=== PATIENT | female | born 1975 | race Caucasian/White ===

== ENCOUNTER 2016-11-22 15:38 | Emergency (ER) | payer MEDICAID ==
--- NOTE | 2016-11-22 15:37 | EDPHY ---
H & P Time Seen by Provider: 11/22/16 15:39 Constitutional: Initial Vital Signs Heart Rate 54 L 11/22/16 15:38 Respiratory Rate 18 11/22/16 15:38 Blood Pressure 112/82 H 11/22/16 15:38 O2 Sat (%) 96 11/22/16 15:38 O2 Delivery Mode Room Air Allergies/Adverse Reactions: No Known Allergies Allergy (Unverified 09/28/13 19:48) Medical Decision Making ED Course/Re-evaluation: CHIEF COMPLAINT: Syncope HISTORY OF PRESENT ILLNESS: This patient is a 41 year old female who presents to the Emergency Department [facility] following an episode of witnessed syncope while awaiting her appointment for a non-surgical . EMS tells me that she was given initial medications when she began to feel nauseated and collapsed. When they arrived, she was awake but disoriented. Her initial vitals in transport were within normal ranges. Upon arrival to the ED, she is alert but mildly disoriented. She denies headache or trauma, heart palpitations, chest pain, or any additional complaints. Her physician with the [facility] reports a history of prolonged vagal reactions. REVIEW OF SYSTEMS: A 10 point review of systems was performed and is negative with the exception of the elements mentioned in the history of present illness. PHYSICAL EXAM: HR 54, BP 112/82, O2 Sat 96%, RR 18. Temp noted General Appearance: Alert, well hydrated, appropriate, and non-toxic appearing. Head: Atraumatic without scalp tenderness or obvious injury Eyes: Pupils equal, round, reactive to light and accommodation, EOMI, no trauma , no injection. Ears: Clear bilaterally, no perforation, normal landmarks Nose: Atraumatic, no rhinorrhea, clear. Throat: There is no erythema or exudates, no lesions, normal tonsils, mucus membranes moist. Neck: Supple, 2+ carotid upstroke, nontender, no lymphadenopathy. Respiratory: No retractions, no distress, no wheezes, and no accessory muscle use. Lungs are clear to auscultation bilaterally. Cardiovascular: Regular rate and rhythm, no murmurs, rubs, or gallops. Bilateral carotid, radial, dorsalis pedis, and posterior tibial pulses intact. Good capillary refill all extremities. Gastrointestinal: Abdomen is soft, nontender, non-distended, no masses, no rebound, no guarding, no peritoneal signs. Musculoskeletal: Normal active ROM of all extremities, atraumatic. Neurological: Alert, responsive to questions, disoriented. The patient has normal DTRs and non-focal cranial nerves, motor, sensory, and cerebellar exam. Skin: No rashes, good turgor, no nodules on palpation. Past medical history: Prolonged vasovagal syncope. Social history: and daughter at bedside. DIAGNOSTICS/PROCEDURES/CRITICAL CARE TIME: EKG INTERPRETATION: The 12 lead EKG was interpreted by myself: Sinus bradycardia, rate 48. See hard copy and/or "tracemaster" electronic copy for interpretation. ECHOCARDIOGRAPHY: Indication: syncope Procedure: Limited transthoracic 2D echocardiogram. A limited transthoracic echocardiogram was performed by the echocardiogram technologists and interpreted by Dr. Cain Delvalle. Conclusion: 1. Left ventricle normal in size and function 2. EF = 70% 3. Dilated inferior vena cava suggests increased right atrial pressure 4. Trace mitral valve prolapse. Mild mitral regurgitation. Mild tricuspid regurgitation. 5. Right ventricular systolic pressure is 45mmHg. DIFFERENTIAL DIAGNOSIS: The differential diagnosis for the patient's syncope included but was not limited to vasovagal syncope, arrhythmia, dehydration, cardiogenic causes, neurogenic causes, and blood loss. MEDICAL DECISION MAKING: This patient is a 41 year old female arriving via EMS following an episode of syncope just after receiving her initial medical medications at the [facility]. I discussed the case with the patient's physician who reports that the patient has a history of vagal episodes; her family confirmed this. Given this, I am suspicious that her medications instigated a prolonged vasovagal syncopal episode. 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 Will also proceed with echocardiography as family reports this is more extended than prior syncopal episodes. The [facility] Physician recommends that she complete her medication at home if she is able to be discharged in stable condition. ED COURSE: 1535: Took EMS report at bedside. 1542: Consultation with the patient's physician at the [facility]: [phone] 1629: Labs reviewed; the patient is not anemic, electrolytes are normal. Plan for consultation with cardiology. 1633: Consultation with Dr. Cain Delvalle, carbider, who will read the echocardiogram. He is suspicious of lack of sympathetic tone to explain the vagal event. He is happy to follow-up with her in the office. He also recommends that she follow-up with her PCP. 1708: On reevaluation, the patient is doing better. She has no complaints at this time. She is able to ambulate appropriately without exacerbation of symptoms. I discussed imaging and lab results with the patient who understand follow-up instructions. She will complete her medicated at home as discussed with her provider [facility]. She has instructions to follow-up with cardiology this week as well as her PCP. - Data Points Laboratory Results: Laboratory Results 11/22/16 15:47 11/22/16 15:47 11/22/16 15:47 WBC 7.53 10^3/uL (3.80-9.50) RBC 4.07 L 10^6/uL (4.18-5.33) Hgb 12.9 g/dL (12.6-16.3) Hct 36.8 L % (38.0-47.0) MCV 90.4 fL (81.5-99.8) MCH 31.7 pg (27.9-34.1) MCHC 35.1 g/dL (32.4-36.7) RDW 12.7 % (11.5-15.2) Plt Count 216 10^3/uL (150-400) MPV 8.8 fL (8.7-11.7) Neut % (Auto) 51.0 % (39.3-74.2) Lymph % (Auto) 36.4 % (15.0-45.0) [place] % (Auto) 7.0 % (4.5-13.0) Eos % (Auto) 4.6 % (0.6-7.6) Baso % (Auto) 0.7 % (0.3-1.7) Nucleat RBC Rel Count 0.0 % (0.0-0.2) Absolute Neuts (auto) 3.84 10^3/uL (1.70-6.50) Absolute Lymphs (auto) 2.74 10^3/uL (1.00-3.00) Absolute Monos (auto) 0.53 10^3/uL (0.30-0.80) Absolute Eos (auto) 0.35 10^3/uL (0.03-0.40) Absolute Basos (auto) 0.05 10^3/uL (0.02-0.10) Absolute Nucleated RBC 0.00 10^3/uL (0-0.01) Immature Gran % 0.3 % (0.0-1.1) Immature Gran # 0.02 10^3/uL (0.00-0.10) Sodium 133 L mEq/L (134-144) Potassium 4.0 mEq/L (3.5-5.2) Chloride 104 mEq/L (97-110) Carbon Dioxide 22 mEq/l (22-31) Anion Gap 7 mEq/L (8-16) BUN 14 mg/dL (7-23) Creatinine 0.6 mg/dL (0.6-1.0) Estimated GFR > 60 Glucose 95 mg/dL (70-100) Calcium 8.4 L mg/dL (8.5-10.4) Magnesium 1.8 mg/dL (1.6-2.3) Troponin I < 0.012 ng/mL (0-0.034) Medications Given: Discontinued Medications Sodium Chloride (Ns) 1,000 mls @ 0 mls/hr IV ONCE ONE PRN Reason: Wide Open Stop: 11/22/16 16:22 Last Admin: 11/22/16 16:23 Dose: 1,000 mls Departure - Departure Disposition: Home, Routine, Self-Care Clinical Impression: Bradycardia, Syncope Condition: Good Instructions: Syncope (ED), Bradycardia (ED) Additional Instructions: 1. Continue the medications for your procedure as prescribed by your physician at the [facility]. You should be able to take this at home as directed. 2. Schedule a follow-up appointment with [facility] to further investigate your bradycardia (low heart rate). 3. Schedule a follow-up appointment with your primary care provider for reevaluation next week. 4. Return to the Emergency Department for repeat episode of fainting, lightheadedness or dizziness, chest pain, or other serious concerns. Referrals: Cain Delvalle MD [Medical Doctor] - As per Instructions Report Scribed for: Mitul Buchanan Report Scribed by: Terrie Hagen Date of Report: 11/22/16 Time of Report: 15:39
--- NOTE | 2016-11-22 15:57 | CPEKG ---
Heart Rate: 48 RR Interval: 1250 P-R Interval: 204 QRSD Interval: 106 QT Interval: 440 QTC Interval: 394 P Stewart: 77 QRS Stewart: -34 T Wave Stewart: 19 EKG Severity - BORDERLINE ECG - EKG Impression: SINUS BRADYCARDIA EKG Impression: BORDERLINE IVCD WITH LAD Electronically Signed By: Mitul Buchanan 22-Nov-2016 23:03:09
[2016-11-22 15:58] LABS: % IMMATURE GRANULYOCYTES 0.3 % (0.0-1.1); ABSOLUTE IMMATURE GRANULOCYTES 0.02 10^3/uL (0.00-0.10); ADD DIFF? NO; ADD MORPH? NO; ADD SCAN? NO; ATYPICAL LYMPHOCYTE FLAG 10 (0-99); FRAGMENT RBC FLAG 0 (0-99); HEMATOCRIT 36.8 % (38.0-47.0); HEMOGLOBIN 12.9 g/dL (12.6-16.3); LEFT SHIFT FLG 0 (0-99); LIPEMIA HEMOLYSIS FLAG 90 (0-99); MEAN CELL HEMOGLOBIN 31.7 pg (27.9-34.1); MEAN CELL HEMOGLOBIN CONCENTR. 35.1 g/dL (32.4-36.7); MEAN CELL VOLUME 90.4 fL (81.5-99.8); MEAN PLATELET VOLUME 8.8 fL (8.7-11.7); PLATELET CLUMPS FLAG 20 (0-99); PLATELET COUNT 216 10^3/uL (150-400); RED BLOOD CELL COUNT 4.07 10^6/uL (4.18-5.33); RED CELL DISTRIBUTION WIDTH 12.7 % (11.5-15.2)
[2016-11-22 16:05] VITALS: O2SAT 96
[2016-11-22 16:13] LABS: ANION GAP 7 mEq/L (8-16); CALCIUM 8.4 mg/dL (8.5-10.4); CARBON DIOXIDE 22 mEq/l (22-31); CHLORIDE 104 mEq/L (97-110); CREATININE 0.6 mg/dL (0.6-1.0); GLOMERULAR FILTRATION RATE > 60; GLUCOSE 95 mg/dL (70-100); MAGNESIUM 1.8 mg/dL (1.6-2.3); SODIUM 133 mEq/L (134-144)
[2016-11-22] MEDS ORDERED: NS 1,000 ML IV ONE (16:21)
[2016-11-22 16:24] LABS: TROPONIN I < 0.012 ng/mL (0-0.034)
--- NOTE | 2016-11-22 16:38 | ECHO ---
[id number] + + [address] : : [place] [address] : : [phone] + + Adult Echocardiographic Report + --------+ :Name: DANIEL HSU JStudy Date: 11/22/2016 04:12 PM BP: 113/62 m mHg : : Hospital Admission Number: [id number] [place]: ER: :: 1975 Gender: Female Height: 66 i n : :Age: 41 yrs Race: WH Weight: 122 lb : :Reason For Study: syncope : : BSA: 1.6 met ers2 : :History: syncope : + --------+ MMode/2D Measurements & Calculations IVSd: 0.76 cm LVIDd: 4.3 cm FS: 43.2 % Ao root diam: 2.4 cm LVPWd: 0.73 cm LVIDs: 2.5 cm EDV(Teich): 85.4 ml ESV(Teich): 21.7 ml EF(Teich): 74.6 % Normal Measurement Values: + + :LVIDd (3.5-5.7cm) IVSd (0.6-1.1cm) LVPWd (0.6-1.1cm) Aortic Root (2.0-3.7cm)Left Atrium (1.5-4.0cm): :LV Vol(d) (76-115ml) LV Vol(s) (29-48ml) Ejec Fraction (50-65%)PV Eusebio (0.6- 1.2m/s) TV Eusebio (0.4-1.0m/s) : :MV E Eusebio (0.8-1.0m/s)MV A Eusebio (0.3-1.0m/s)LVOT Eusebio (0.7-1.2m/s) Asc Ao Eusebio ( 0.9-1.8m/s) : + + Doppler Measurements & Calculations MV E max eusebio: Ao V2 max: LV V1 max: PA V2 max: 89.3 cm/sec 141.0 cm/sec 99.7 cm/sec 95.3 cm/sec MV A max eusebio: Ao max P.0 mmHgLV V1 max PG: PA max P.7 cm/sec 4.0 mmHg 3.6 mmHg MV E/A: 4.3 MV dec time: 0.17 sec TR max eusebio: 275.0 cm/sec TR max P.3 mmHg RAP systole: 15.0 mmHg RVSP(TR): 45.3 mmHg Left Ventricle The left ventricle is normal in size and function. There is normal left ventricular wall thickness. Ejection Fraction = 70%. No regional wall motion abnormalities noted. Right Ventricle The right ventricle is normal in size and function. Atria The left atrial size is normal. Right atrial size is normal. A dilated inferior vena cava suggests increased right atrial pressure. The lack of respiratory variation in the inferior vena cava diameter is noted. Mitral Valve There is trace to mild mitral valve prolapse. There is no mitral valve stenosis. There is mild mitral regurgitation. Tricuspid Valve The tricuspid valve is normal in structure and function. There is no tricuspid stenosis. There is mild tricuspid regurgitation. Right ventricular systolic pressure is 45mmHg. There is Doppler evidence for moderate pulmonary hypertension. Aortic Valve The aortic valve is trileaflet. There is no aortic stenosis. There is no aortic insufficiency. Pulmonic Valve The pulmonic valve is not well visualized. Great Vessels The aortic root is not well visualized. Pericardium/Pleural There is no pericardial effusion. Conclusion Technically difficult apical window due to implants. The left ventricle is normal in size and function. Ejection Fraction = 70%. A dilated inferior vena cava suggests increased right atrial pressure. The lack of respiratory variation in the inferior vena cava diameter is noted. There is trace to mild mitral valve prolapse. There is mild mitral regurgitation. There is mild tricuspid regurgitation. Right ventricular systolic pressure is 45mmHg. There is Doppler evidence for moderate pulmonary hypertension. The aortic root is not well visualized. Final Reading Physician: Frankie Johnson signed on 11/22/2016 04:37 PM Ordering Physician: Mitul Buchanan Performed By: Helga Mckay
[2016-11-22 17:42] VITALS: BP 100/59; PULSE 51; RESP 16; TEMP 97
== END 2016-11-22 17:40 | disposition home or self-care (01) ==
LOC: EDUNIT#
DX: R55 Syncope and collapse (principal); R00.1 Bradycardia, unspecified

== ENCOUNTER → 2017-02-20 | Outpatient (CLI) | payer MEDICAID | LOC: BMCIMAGING 13:46 | PROVIDERS: ATTEND Podiatrist Foot & Ankle Surgery | DX: R22.41 Localized swelling, mass and lump, right lower limb (principal) ==

== ENCOUNTER → 2017-08-01 | Outpatient (CLI) | payer MEDICAID | LOC: FIMAGING 12:32 | PROVIDERS: ATTEND Midwife | DX: Z12.31 Encounter for screening mammogram for malignant neoplasm of breast (principal); Z80.3 Family history of malignant neoplasm of breast | CPT/HCPCS: G0202 ==

== ENCOUNTER 2018-03-14 01:57 | Emergency (ER) | payer MEDICAID ==
--- NOTE | 2018-03-14 02:00 | EDPHY ---
H & P Time Seen by Provider: 03/14/18 02:00 HPI/ROS: HPI CHIEF COMPLAINT: Syncope HISTORY OF PRESENT ILLNESS: This patient is a 43-year-old female, she presents emergency room by ambulance after she had a syncopal episode in the bathroom. Patient is a rather otherwise healthy 43-year-old female she is a runner, heart rate usually runs in the 40s to 50s. She is undergoing a medical . She states that she is approximately 4-5 weeks with an IUP. She saw her OBGYN today at [facility] and was given the medications for a medical . She starting having lower pelvic cramping and some vaginal bleeding she went to the bathroom due to the cramping this evening and had a syncopal episode. Patient reports that when she has some lower abdominal pain cramping or diarrhea she has an over active vagal nerve which then causes her to get at times having a syncopal episode when she has significant pain. She states that she had some rather severe cramping after taking the medication around 230 today. She was going to the bathroom this evening and while having the cramping and some vaginal bleeding without any significant passage of clots she had a syncopal episode. She arrives by ambulance with a heart rate in the 40s. Blood pressures in the 98 systolic region. She denies any chest pain or shortness of breath. Past Medical History: Denies significant medical history Past Surgical History: Denies any abdominal surgery. Social History: Denies drugs alcohol tobacco. Family History: Noncontributory ROS REVIEW OF SYSTEMS: A comprehensive 10 point review of systems is otherwise negative aside from elements mentioned in the history of present illness. Exam Constitutional appears nontoxic no acute distress, triage nursing summary reviewed, vital signs reviewed, awake/alert. Bradycardic in the 40s with systolic blood pressure in the 90s. Eyes normal conjunctivae and sclera, EOMI, PERRLA. HENT normal inspection, atraumatic, moist mucus membranes, no epistaxis, neck supple/ no meningismus, no raccoon eyes. Respiratory clear to auscultation bilaterally, normal breath sounds, no respiratory distress, no wheezing. Cardiovascular bradycardic in the 40s, regular rhythm, no murmur, no edema, distal pulses normal. Gastrointestinal no significant tenderness on the lower abdomen, soft, non- tender, no rebound, no guarding, normal bowel sounds, no distension, no pulsatile mass. Genitourinary no CVA tenderness. Musculoskeletal no midline vertebral tenderness, full range of motion, no calf swelling, no tenderness of extremities, no meningismus, good pulses, neurovascularly intact. Skin pink, warm, & dry, no rash, skin atraumatic. Neurologic awake, alert and oriented x 3, AAOx3, moves all 4 extremities equally, motor intact, sensory intact, CN II-XII intact, normal cerebellar, normal vision, normal speech. Psychiatric normal mood/affect. Heme/Lymph/Immune no lymphadenopathy. Differential Diagnosis: Includes but is not limited to in a particular order dehydration, blood loss anemia leading to syncope, electrolyte disturbance, cardiac arrhythmia, vasovagal syncope, dehydration leading to syncope. Medical Decision Making: Plan for this patient IV establishment IV fluid bolus obtain EKG and electrolytes, troponin, chest x-ray, IV fluids, ultrasound. Re- evaluate Re-evaluation: EKG interpretation by me on record in [employer] system. Impression time of EKG 2:17 a.m., this is sinus bradycardia rate of 42. No acute ischemic change no ST elevation no ST depression no significant T-wave abnormalities. No signs of cardiac arrhythmia. Ultrasound shows a yolk sac surrounded but subchorionic hemorrhage. Indicating active miscarriage. Called to me by Dr. Zambrano. ED x-ray chest one view negative for acute cardiopulmonary disease interpreted by myself. 0431: Patient re-evaluated she is resting comfortably be she ear to be discharged. Current heart rate 59. Blood pressure 91/52. She is an avid runner. She states that her blood pressure and heart rate normally run low. She is very thin. I discussed all her blood work and ultrasound with her. She is comfortable being discharged. She does understand return emergency room if develops worsening pelvic pain or cramping, heavy vaginal bleeding, syncope or feeling very lightheaded are not well. I do recommend she follows up with her OBGYN as well. Return precautions discussed she understands return emergency room if develops chest pain shortness of breath fever vomiting syncope. Source: Patient, EMS - Medical/Surgical History Hx Asthma: No Hx Chronic Respiratory Disease: No Hx Diabetes: No Hx Cardiac Disease: No Hx Renal Disease: No Hx Cirrhosis: No Hx Alcoholism: No Hx HIV/AIDS: No Hx Splenectomy or Spleen Trauma: No - Social History Smoking Status: Never smoked Constitutional: Initial Vital Signs Temperature (C) 36.4 C 03/14/18 02:01 Heart Rate 44 L 03/14/18 02:01 Respiratory Rate 16 03/14/18 02:01 Blood Pressure 95/56 L 03/14/18 02:01 O2 Sat (%) 100 03/14/18 02:01 O2 Delivery Mode Room Air Allergies/Adverse Reactions: No Known Allergies Allergy (Unverified 09/28/13 19:48) Home Medications: Medication Instructions Recorded NK [No Known Home Meds] 03/14/18 Medical Decision Making - Data Points Laboratory Results: Laboratory Results 03/14/18 02:00 03/14/18 02:00 03/14/18 03/14/18 03/14/18 04:00 02:00 02:00 WBC 7.54 10^3/uL 10^3/uL (3.80-9.50) RBC 4.34 10^6/uL 10^6/uL (4.18-5.33) Hgb 13.4 g/dL g/dL (12.6-16.3) Hct 39.2 % % (38.0-47.0) MCV 90.3 fL fL (81.5-99.8) MCH 30.9 pg pg (27.9-34.1) MCHC 34.2 g/dL g/dL (32.4-36.7) RDW 12.7 % % (11.5-15.2) Plt Count 264 10^3/uL 10^3/uL (150-400) MPV 9.2 fL fL (8.7-11.7) Neut % (Auto) 43.8 % % (39.3-74.2) Lymph % (Auto) 41.5 % % (15.0-45.0) [place] % (Auto) 8.5 % % (4.5-13.0) Eos % (Auto) 5.4 % % (0.6-7.6) Baso % (Auto) 0.7 % % (0.3-1.7) Nucleat RBC Rel Count 0.0 % % (0.0-0.2) Absolute Neuts (auto) 3.30 10^3/uL 10^3/uL (1.70-6.50) Absolute Lymphs (auto) 3.13 10^3/uL H 10^3/uL (1.00-3.00) Absolute Monos (auto) 0.64 10^3/uL 10^3/uL (0.30-0.80) Absolute Eos (auto) 0.41 10^3/uL H 10^3/uL (0.03-0.40) Absolute Basos (auto) 0.05 10^3/uL 10^3/uL (0.02-0.10) Absolute Nucleated RBC 0.00 10^3/uL 10^3/uL (0-0.01) Immature Gran % 0.1 % % (0.0-1.1) Immature Gran # 0.01 10^3/uL 10^3/uL (0.00-0.10) Sodium 140 mEq/L mEq/L (135-145) Potassium 3.8 mEq/L mEq/L (3.3-5.0) Chloride 105 mEq/L mEq/L (97-110) Carbon Dioxide 23 mEq/l mEq/l (22-31) Anion Gap 12 mEq/L mEq/L (8-16) BUN 14 mg/dL mg/dL (7-23) Creatinine 0.7 mg/dL mg/dL (0.6-1.0) Estimated GFR > 60 Glucose 98 mg/dL mg/dL (70-100) Calcium 8.8 mg/dL mg/dL (8.5-10.4) Magnesium 1.9 mg/dL mg/dL (1.6-2.3) Total Bilirubin 0.6 mg/dL mg/dL (0.1-1.4) Conjugated Bilirubin 0.4 mg/dL mg/dL (0.0-0.5) Unconjugated Bilirubin 0.2 mg/dL mg/dL (0.0-1.1) AST 17 IU/L IU/L (14-46) ALT 29 IU/L IU/L (9-52) Alkaline Phosphatase 32 IU/L L IU/L (38-126) Creatine Kinase 54 IU/L IU/L (0-156) CK-MB (CK-2) Fraction 0.69 ng/mL ng/mL (0.00-3.19) Troponin I < 0.012 ng/mL ng/mL (0.000-0.034) Total Protein 6.1 g/dL L g/dL (6.3-8.2) Albumin 3.4 g/dL L g/dL (3.5-5.0) Urine Color YELLOW Urine Appearance CLEAR Urine pH 6.0 (5.0-7.5) Ur Specific [place] 1.012 (1.002-1.030) Urine Protein 1+ H (NEGATIVE) Urine Ketones NEGATIVE (NEGATIVE) Urine Blood 3+ H (NEGATIVE) Urine Nitrate NEGATIVE (NEGATIVE) Urine Bilirubin NEGATIVE (NEGATIVE) Urine Urobilinogen NEGATIVE EU EU (0.2-1.0) Ur Leukocyte Esterase NEGATIVE (NEGATIVE) Urine RBC Pending Urine WBC Pending Ur Epithelial Cells Pending Urine Glucose NEGATIVE (NEGATIVE) Medications Given: Discontinued Medications Sodium Chloride (Ns) 1,000 mls @ 0 mls/hr IV EDNOW ONE; Wide Open PRN Reason: Protocol Stop: 03/14/18 02:08 Last Admin: 03/14/18 02:13 Dose: 1,000 mls Sodium Chloride (Ns) 1,000 mls @ 0 mls/hr IV ONCE ONE PRN Reason: Wide Open Stop: 03/14/18 02:09 Last Admin: 03/14/18 02:13 Dose: 1,000 mls Departure - Departure Disposition: Home, Routine, Self-Care Clinical Impression: Miscarriage Syncope Qualifiers: Syncope type: vasovagal syncope Qualified Code(s): R55 - Syncope and collapse Condition: Good Instructions: Miscarriage (ED), Syncope (ED) Additional Instructions: 1. Return emergency room if develops worsening symptoms includes passing ill or further significant pain. 2. Make sure to drink lots of fluids stay well-hydrated 3. Follow up with your OBGYN. 4. Return emergency room if there is worsening symptoms. Referrals: NONE *PRIMARY CARE P,. [Unknown] - As per Instructions
[2018-03-14] MEDS ORDERED: NS 1,000 ML IV ONE ×2 (02:07→02:08)
[2018-03-14 02:16] LABS: PLATELET COUNT 264 10^3/uL (150-400)
--- NOTE | 2018-03-14 02:19 | CPEKG ---
Heart Rate: 42 RR Interval: 1429 P-R Interval: 204 QRSD Interval: 98 QT Interval: 452 QTC Interval: 378 P [place]: 80 QRS [place]: -39 T Wave [place]: 47 EKG Severity - BORDERLINE ECG - EKG Impression: SINUS BRADYCARDIA EKG Impression: LEFT AXIS DEVIATION EKG Impression: CONSIDER ANTERIOR INFARCT Electronically Signed By: Eduardo Sapp 14-Mar-2018 07:22:47
[2018-03-14 02:30] LABS: CREATINE KINASE 54 IU/L (0-156)
[2018-03-14 04:43] VITALS: BP 105/66
== END 2018-03-14 04:42 | disposition home or self-care (01) ==
LOC: EDUNIT#
DX: O99.89 Other specified diseases and conditions complicating pregnancy, childbirth and the puerperium (principal); R55 Syncope and collapse; O04.80 (Induced) termination of pregnancy with unspecified complications; E86.0 Dehydration; Z3A.01 Less than 8 weeks gestation of pregnancy

== ENCOUNTER → 2019-03-20 | Outpatient (CLI) | payer MEDICAID | LOC: BMCIMAGING 16:58 ==

== ENCOUNTER → 2019-03-23 | Outpatient (CLI) | payer MEDICAID | LOC: BMCIMAGING 14:26 ==